=== PATIENT | female | born 1985 | race Hispanic/Latino ===

== ENCOUNTER 2016-08-06 09:53 | Observation (INO) | payer MEDICAID ==
[2016-08-06] MEDS ORDERED: LACTATED RINGERS 500 ML IV ONE (10:22)
[2016-08-06 10:51] LABS: Bilirubin,Urine NEG (Negative); Blood,Urine NEG (Negative); Ketones,Urine NEG (Negative); Leukocyte Esterase,Urine NEG (Negative); Mucus,Urine FEW /HPF; Nitrite,Urine NEG (Negative); Protein,Urine <15 mg/dL mg/dL (Negative); Urobilinogen,Urine < 2.0 mg/dL (<2.0); WBC,Urine < 1.0 /HPF (0.0-6.0)
[2016-08-06] MEDS ORDERED: BRETHINE SUB-Q ONE ×2 (12:00→13:07)
[2016-08-06] MEDS ORDERED: ROBITUSSIN DM PO PRN (13:00)
[2016-08-06] MEDS ORDERED: LACTATED RINGERS 1,000 ML IV SCH (13:00)
[2016-08-06] MEDS ORDERED: ZOFRAN IV PRN (13:00)
[2016-08-06] MEDS ORDERED: BENADRYL PO PRN (13:00)
[2016-08-06] MEDS ORDERED: TYLENOL PO PRN (13:00)
[2016-08-06] MEDS ORDERED: COLACE PO PRN (13:00)
[2016-08-06] MEDS ORDERED: AMBIEN PO PRN (13:00)
[2016-08-06] MEDS ORDERED: CELESTONE SOLUSPAN IM SCH (13:00)
[2016-08-06] MEDS ORDERED: MYLICON PO PRN (13:00)
[2016-08-06 13:28] LABS: Basophils % (Auto) 0.3 % (0.0-1.8); Eosinophils % (Auto) 0.8 % (0.0-4.3); Hemoglobin 10.2 gm/dl (10.1-14.3); Mean Corpuscular HGB Conc 32 % (30-34); Mean Corpuscular Volume 75 fl (79-97); Platelet Count 139 K/mm3 (140-440); Red Blood Count 4.25 M/mm3 (3.65-5.03); Red Cell Distribution Width 16.4 % (13.2-15.2); White Blood Count 8.2 K/mm3 (4.5-11.0)
[2016-08-06 13:34] LABS: Mean Corpuscular Hemoglobin 24 pg (28-32)
--- NOTE | 2016-08-06 13:38 | History and Physical Report ---
History of Present Illness Date of admission: 08/06/16 13:26 History of present illness: EDC Calculations LMP: 09/10/2016 EDC Confirmation: 09/10/2016 Gestational Age: 5 2/7 weeks Past History : 4 Term Births: 3 Living Children: 3 Para: 3 # 1 Delivery date: 09/2007 Weeks Gestation: 40 labor: no Delivery type: Anesthesia type: epidural Delivery location: [facility] Infant Sex: Female weight: 8-10 # 2 Delivery date: 07/25/2010 Weeks Gestation: 38 Delivery type: Vaginal Anesthesia type: epidural Delivery location: [facility] Infant Sex: male weight: 6.94 Comments: none # 3 Delivery date: 07/06/2015 Weeks Gestation: 39 Delivery type: Vaginal Anesthesia type: epidural Delivery location: [facility] Sex: female weight: 7.94 Comments: GBS+ Past Medical History Abnormal PAP: negative GAY Exposure: negative Infertility: negative Uterine Anomaly: negative Uterine Surgery (not C/S): negative Other Gynecologic Problems: negative Social Hx: Patient is single Infection History Hx of STD: none HIV Risk Eval: low risk Hepatitis B Risk Eval: low risk Personal hx. of genital herpes: no Partner hx. of genital herpes: no Rash, Viral, or Febrile illness since last LMP? no Varicella/Chicken Pox Status: Previous Disease Genetic History Congenital Heart Defect: Mom: no Dad: no Zoë Disease: Mom: no Dad: no Thalassemia Mom: no Dad: no Neural Tube Defect Mom: no Dad: no Down's Syndrome Mom: no Dad: no Nathan-Sachs Mom: no Dad: no Sickle Cell Disease/Trait Mom: no Dad: no Hemophilia Mom: no Dad: no Muscular Dystrophy Mom: no Dad: no Cystic Fibrosis Mom: no Dad: no [place] Chorea Mom: no Dad: no Mental Retardation Mom: no Dad: no Fragile X Mom: no Dad: no Other Genetic/Chromosomal Disorder Mom: no Dad: no Child w/other defect Mom: no Dad: no Enviromental Exposures Xray Exposure: no Medication, drug, or alcohol use since LMP: no Chemical/Other Exposure: no Exposure to Cat Liter: no Hx of Parvovirus (Fifth Disease): no 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 Denies nausea, vomiting, headache, swelling of legs, abdominal pain, vaginal discharge, vaginal bleeding and contractions. Denies vaginal discharge, incontinence, dysuria, hematuria, urinary frequency, amenorrhea, menorrhagia, abnormal vaginal bleeding, pelvic pain, genital sores, decreased libido, painful periods, painful sex, urinary urgency, hot flashes, vaginal dryness, vaginal itching and vaginal odor. CV Denies chest pains, palpitations, syncope, dyspnea on exertion, orthopnea, PND and peripheral edema. Resp Denies cough, dyspnea at rest, excessive sputum, hemoptysis, wheezing and pleurisy. GI Denies nausea, vomiting, diarrhea, constipation, change in bowel habits, abdominal pain, melena, hematochezia, jaundice, gas/bloating, indigestion/ heartburn, dysphagia and odynophagia. Endo Denies cold intolerance, heat intolerance, polydipsia, polyphagia, polyuria and unusual weight change. Breast Denies left breast lump, right breast lump, nipple discharge, bloody discharge from nipple, breast pain, abnormal mammogram and breast enlargement. MS Denies back pain, joint pain, joint swelling, muscle cramps, muscle weakness, stiffness, arthritis, sciatica, restless legs, leg pain at night and leg pain with exertion. Derm Denies rash, itching, dryness and suspicious lesions. Neuro Denies paralysis, paresthesias, headache, seizures, tremors, vertigo, transient blindness, frequent falls, frequent headaches and difficulty walking. Psych Denies depression, anxiety, irritability and mood swings. Eyes Denies blurring, diplopia, irritation, discharge, vision loss, eye pain and photophobia. ENT Denies earache, ear discharge, tinnitus, decreased hearing, nasal congestion, nosebleeds, sore throat and hoarseness. Allergy Denies urticaria, allergic rash, hay fever and recurrent infections. Heme Denies abnormal bruising, bleeding and enlarged lymph nodes. PHYSICAL EXAM HEENT: PERRLA, normal conjunctiva, external nose and nasal mucosa normal, oropharynx clear Neck/Thyroid: supple, thyroid normal Skin no significant abnormal lesions or rashes Chest: respiratory effort normal, clear to auscultation Breasts: normal without skin changes or masses CV: regular, normal S1-S2, no murmur, no rub, no gallop Abdomen: normal bowel sounds, soft, nontender, no HSM Musculoskeletal: grossly normal ROM in joints, no joint tenderness or muscle weakness Neuro: grossly normal DTRs, sensation, strength, cranial nerves Extremities: no clubbing, cyanosis, or edema [employer] Exams Vulva/Vagina: No lesions, normal BUS, normal rugae Cervix: No lesions; no cervical motion tenderness Uterus: normal size and position, midline, mobile Adnexae: no masses or tenderness Rectovaginal: no masses or tenderness Past History - Obstetrical History Expected Date of Delivery: 09/10/16 Actual Gestation: 35 Week(s) 0 Day(s) : 4 Para: 3 Hx # Term Pregnancies: 3 Number of Living Children: 3 Medications and Allergies Allergies Allergy/AdvReac Type Severity Reaction Status Date / Time No Known Allergies Allergy Verified 06/13/15 14:21 Home Medications Medication Instructions Recorded Confirmed Last Taken Type Vitamins 1 tab PO DAILY 08/06/16 08/06/16 Unknown History Active Meds: Active Medications Acetaminophen (Tylenol) 650 mg PO Q4H PRN PRN Reason: Pain MILD(1-3)/Fever >100.5/CARRILLO Betamethasone Acet/Betameth SodPhos (Celestone Soluspan) 12 mg IM Q24HR GLADYS Stop: 08/07/16 10:01 Diphenhydramine HCl (Benadryl) 25 mg PO Q6H PRN PRN Reason: Itching Docusate Sodium (Colace) 100 mg PO Q12H PRN PRN Reason: Constipation Guaifenesin (Robitussin Dm) 10 ml PO Q6H PRN PRN Reason: Cough Lactated Ringer's (Lactated Ringers) 1,000 mls @ 125 mls/hr IV DIRECT GLADYS Multivitamins/Iron/Calcium ( Vitamin) 1 each PO QDAY [facility] Ondansetron HCl (Zofran) 4 mg IV Q6H PRN PRN Reason: Nausea And Vomiting Simethicone (Mylicon) 80 mg PO Q6H PRN PRN Reason: Gas pain Zolpidem Tartrate (Ambien) 10 mg PO ONCE PRN PRN Reason: Sleep - Vital Signs Vital signs: Vital Signs Temp Resp 98.6 F 18 08/06/16 10:05 08/06/16 10:05 Temp Pulse Resp BP Pulse Ox 98.6 F 105 H 18 112/75 08/06/16 10:05 08/06/16 10:07 08/06/16 10:05 08/06/16 10:07 - Physical Exam Breasts: Positive: deferred Cardiovascular: Regular rate, Normal S1, Normal S2 Lungs: Positive: Normal air movement Abdomen: Positive: normal appearance, soft, normal bowel sounds. Negative: distention, tenderness Genitourinary (Female): Positive: normal external genitalia Vulva: both: normal Vagina: Positive: normal moisture. Negative: discharge Cervix: Negative: lesion, discharge Uterus: Positive: normal size, normal contour Adnexa: both: normal Anus/Rectum: Positive: normal perianal skin, heme negative. Negative: rectal mass, hemorrhoids Extremities: Positive: normal Deep Tendon Reflex Grade: Normal +2 - Obstetrical FHR: category 1 Uterine Contraction Monitor Mode: External Cervical Dilatation: 1 Cervical Effacement Percentage: 0 station: -4 Uterine Contraction Pattern: Irregular Uterine Contraction Intensity: Mild Results Result Diagrams: 08/06/16 Unknown Abnormal lab results 08/06/16 08/06/16 Range/Units Unknown Unknown Seg Neutrophils % 71.1 H (40.0-70.0) % Urine pH 8.0 H (5.0-7.0) All other labs normal. Laboratory Data-Patient Name: KATIE WHITEHEAD Test Date Result Blood Type 03/09/2016 O Rh 03/09/2016 Positive Antibody Screen negative Rubella 03/09/2016 immune Serology (RPR) 03/09/2016 NR HBsAg 03/09/2016 Negative Hemoglobin 05/25/2016 11.0 Hematocrit 05/25/2016 34.4 Platelets 03/09/2016 168 [id number] Chlamydia DNA 01/12/2016 Negative GC DNA/Culture 01/12/2016 Urine Culture 03/09/2016 Final report Group B Strep cult 03/09/2016 PAP 01/12/2016 Normal, Satisfactory HIV 03/09/2016 AFP/Quad Screen 03/30/2016 Glucola Test 05/12/2010 114 3hr GTT (Fasting) 1 hr 2 hr 3 hr [facility]-Patient Name:KATIE WHITEHEAD Test Date Result Varicella Ab Sickle Cell 03/09/2016 Negative PPD Fibronectin Cystic Fibrosis Parvovirus TSH 02/02/2010 2.16 Free T4 Hepatitis C ALT 02/02/2010 8 AST 02/02/2010 15 Uric Acid Creatinine 02/02/2010 0.55 24 hr Urine Protein DAVID Assessment and Plan - Patient Problems (1) uterine contractions in third trimester, antepartum Onset Date: ~08/06/16 Current Visit: Yes Status: Acute Plan to address problem: 30yo @ 35w0d with contractions. Close conception. Orders in EMR. consulted
--- NOTE | 2016-08-06 16:57 | Ultrasound Report ---
BIOPHYSICAL PROFILE: INDICATION: labor. COMPARISON: None similar. TECHNIQUE: Transabdominal ultrasound with Doppler interrogation. 2 - breathing movements 2 - movements 2 - posture and tone 2 - Qualitative amniotic fluid volume 8 - TOTAL SCORE OF POSSIBLE 8 Heart Rate (bpm) 176
--- NOTE | 2016-08-06 16:58 | Ultrasound Report ---
OB LIMITED INDICATION: labor. COMPARISON: None similar during this gestation. TECHNIQUE: Transabdominal grayscale ultrasound with Doppler interrogation. Gestation: Renteria Position: Cephalic Amniotic Fluid: WNL (7-24 cm) THANG = 11.5 cm Heart Rate: 155 BPM
--- NOTE | 2016-08-06 18:39 | Event Note ---
Date: 08/06/16 (pt c/o rectal pressure) pt OOB to void. Small area dk blood on pad. C/O rectal pressure. Pt returned to bed SVE 1,30,-4. Lower rectum full of stool. Discussed findings with pt Will order stool softener. POC: NST qshift; INT; po fluids; will see pt in the AM to discharge. aware and agrees. Orders in EMR
[2016-08-07 06:03] VITALS: BP 104/57
--- NOTE | 2016-08-07 06:39 | Discharge Summary ---
Providers - Providers Date of Admission: 08/06/16 13:26 Date of discharge: 08/07/16 (Pt d/c home with RX F/U in office Saturday) Attending physician: YADY MIJARES Primary care physician: KARI KELLY Hospitalization Reason for admission: other ( contractions) Discharge diagnosis: other (IUP @ 35 weeks ) Hospital course: Pt presented to Triage with worsening ctx 08-06-16 Received IVFs, Terb, and BMZ X 1 dise. UCs decreased in freq and intensity. Observed overnite. Consulted with . Pt to be discharged home on Procardia XL X 3-4 days Appointment in office Saturday @ 9:30am. Pt w/o complaint this AM States ctx are less freq and only feel like cramps. Reactive NST this AM. Irregular mild ctx noted. SVE 1, thick, OOP. Pt encouraged to rest, hydrate, and do FKC. She is aware of appt for Saturday @ 929. RX provided at d/c Condition at discharge: Good Disposition: DISCHARGED TO HOME OR SELFCARE - Discharge Diagnoses (1) uterine contractions in third trimester, antepartum Status: Acute Comment: rto Saturday Plan - Provider Discharge Summary Activity: routine Diet: routine Instructions: routine Additional instructions: [] Smoking cessation referral if applicable(refer to patient education folder for contact #) [] Refer to [facility] Booklet Call your doctor immediately for: * Fever > 100.5 * Heavy vaginal bleeding ( >1 pad per hour) * Severe persistent headache * Shortness of breath * Reddened, hot, painful area to leg or breast * Drainage or odor from incision. * Keep incision clean and dry at all times and follow doctor's instructions regarding bathing/showering - Follow up plan Follow up: KARI KELLY MD [Primary Care Provider] - 08/10/16 (Call [phone] with any concerns. Hydration, rest, monitor movement. Take medication as prescribed. )
[2016-08-07] MEDS ORDERED: PRENATAL VITAMIN PO SCH (10:00)
== END 2016-08-07 07:00 | disposition home or self-care (01) ==
LOC: TRG 09:53 → LD 13:26
PROVIDERS: ADMIT Obstetrics & Gynecology; ATTEND Obstetrics & Gynecology
DX: O62.9 Abnormality of forces of labor, unspecified (principal); Z3A.35 35 weeks gestation of pregnancy
CPT/HCPCS: 36415; 76815; 76819; 81001; 85025; 86850; 86900; 86901; 96360; 96361; 96372; G0378; J0702; J3105; J7120

== ENCOUNTER 2016-08-20 21:59 | Outpatient (CLI) | payer MEDICAID ==
[2016-08-20 22:23] VITALS: BP 112/71
== END 2016-08-21 00:34 | disposition home or self-care (01) ==
LOC: TRG 21:59
PROVIDERS: ATTEND Obstetrics & Gynecology
DX: O47.1 False labor at or after 37 completed weeks of gestation (principal); Z3A.37 37 weeks gestation of pregnancy
CPT/HCPCS: 59025